=== PATIENT | female | born 1935 | race Caucasian/White ===

== ENCOUNTER 2017-01-06 17:37 | Inpatient (IN) ==
[2017-01-06 19:37] LABS: BASO% 0.1 % (0.0-0.8); HEMATOCRIT 39.4 % (37.0-47.0); HEMOGLOBIN 12.5 g/dL (12.0-16.0); IMM GRAN# 0.04 X1000 (0.0-0.04); IMM GRAN% 0.2 % (0.0-0.5); LYMPH# 0.41 X1000 (1.2-3.4); LYMPH% 2.2 % (20.5-51.1); MANUAL DIFF NEEDED? NO; MCH 29.1 PG (27-31); MCHC 31.7 g/dL (33-37); MCV 91.6 FL (81-99); MONO# 0.95 X1000 (0.11-0.59); MONO% 5.1 % (1.7-9.3); MPV 10.2 FL (7.4-10.4); NEUT% 92.4 % (42.2-75.2); PLT 231 X1000 (130-400)
[2017-01-06 20:02] LABS: AGAP 8; ALBUMIN 3.5 g/dL (3.5-5.0); ALKALINE PHOSPHATASE 41 U/L (32-104); BUN 18 mg/dL (8-22); CALCIUM 9.2 mg/dL (8.8-10.2); CHLORIDE 89 mmol/L (98-107); COSMO 283; GOT 21 U/L (10-30); GPT 20 U/L (10-36); POTASSIUM 3.8 mmol/L (3.5-5.1); SODIUM 140 mmol/L (136-145); TCO2 43 mmol/L (25-35); TOTAL BILIRUBIN 0.37 mg/dL (0.20-1.00); TOTAL PROTEIN 6.3 g/dL (6.3-8.3)
--- NOTE | 2017-01-06 20:43 | Diag Imaging Result Document ---
PROCEDURE NAME: CHEST-2 VIEWS - 01/06/2017 FRONTAL AND LATERAL CHEST, 2 VIEWS: FINDINGS: Sternal wires are present. The lungs are hyperexpanded. Heart is not enlarged. There are patchy areas of increased density in the mid lungs and right base. Likely scarring in the lower right lung. There is collapse of a lower thoracic vertebra and approximately 50% compression fracture to a mid thoracic vertebra. No effusions. IMPRESSION: Emphysema with bilateral infiltrates. Short-term followup recommended. If no change occurs following treatment then a CT is suggested.
[2017-01-06 20:49] LABS: ALLEN TEST YES; BE 24.4 mmoll (-3.0-3.0); BLOOD TYPE ARTERIAL; DRAW SITE R RADIAL; METHB 1.6 % (0.0-1.5); O2(CT) 15.1 mL/dL (15.0-23.0); PO2(98.6) 104 mmHg (60-100); SAMPLE BLOOD; SAO2 98.8 % (95.0-100.0); THB 11.1 g/dL (11.5-17.4); pH(98.6) 7.42 (7.35-7.45)
[2017-01-06 20:50] LABS: MODALITY CANNULA; PCO2(98.6) 82 mmHg (35-45)
--- NOTE | 2017-01-06 21:27 | PROVIDER DOCUMENTATION ---
This chart was entered by Tim Wolf Scribe, acting as scribe for Ronan Calle MD. HPI-Respiratory General - General Chief Complaint: Edema Stated Complaint: TROUBLE BREATHING, FEET SWELLING Time Seen by Provider: 01/06/17 18:58 Source: patient, family Allergies/Adverse Reactions: Patient Allergies Allergy/AdvReac Type Severity Reaction Status Date / Time No Known Allergies Allergy Verified 01/06/17 18:28 Home Medications: Home Medication List Medication Instructions Recorded Confirmed Last Taken Type Albuterol Sulfate 0.63 mg IH TID 01/06/17 01/06/17 01/06/17 History Albuterol Sulfate [Ventolin Hfa] 60 puff IH PRN PRN 01/06/17 01/06/17 01/06/17 History Arformoterol Neb [Brovana Neb] 15 microgm INH [id number] 01/06/17 01/06/17 01/06/17 History Budesonide 0.5 mg IH BID 01/06/17 01/06/17 01/06/17 History Guaifenesin [Mucinex] 600 mg PO BID 01/06/17 01/06/17 01/06/17 History Levofloxacin 500 mg PO DAILY 01/06/17 01/06/17 01/06/17 History Lorazepam 0.25 mg PO PRN PRN 01/06/17 01/06/17 Unknown History Multivitamin [Child Chew Vitamin] 1 each PO DAILY 01/06/17 01/06/17 01/06/17 History Prednisone 10 mg PO DAILY 01/06/17 01/06/17 01/06/17 History Campus Oil/[place]-3 Fatty Acids 1 each PO BID 01/06/17 01/06/17 01/06/17 History [Campus Oil 1,000 mg Softgel] Tiotropium [place] Inhaler 18 mcg IH DAILY 01/06/17 01/06/17 01/06/17 History [Spiriva] Verapamil HCl [Verapamil ER] 120 mg PO BID 01/06/17 01/06/17 01/06/17 History - History of Present Illness-Resp Nature of Presenting Problem: Pt is a 82 yof who presents to ER with CC of shortness of breath. Pt reports that she was recently discharged from a hospital in [place] and came to [place] for [place]. Pt reports that earlier today she started to become short of breath and anxious so she came to ER. Pt reports hx of lung disease and is on chronic O2 at home. On exam, pt is 100% on 2L O2. Pt also complains of mild bilateral lower extremity swelling and discoloration (more prominent on dorsal aspect of L pedis). Quality of Pain: reports: none Severity in ED: reports: mild Onset/Duration: reports: unsure, this evening Timing: reports: improving Modifying Factors: improves with: oxygen Associated Symptoms: reports: shortness of breath, short of breath. denies: chest pain/soreness, cough, dizziness, earache, facial pain, fever/chills, flu- like symptoms, headache, heart racing, hurts to breathe, hyperventilating, lightheadedness, muscle/bodyaches, nasal congestion, nasal drainage, sinus pain , sore throat, sweaty, wheezing Similar Symptoms Previously?: Yes Recently seen or treated by another doctor?: Yes Review of Systems - Adult - REVIEW OF SYSTEMS - ADULT Constitutional: denies: chills, fever, fatique, night sweats, weight gain, weight loss Eyes: reports: no symptoms reported Ears, Nose, Mouth & Throat: reports: no symptoms reported Cardiovascular: denies: chest pain, edema, heart murmur, irregular heart rate, orthopnea, palpitations, poor circulation, PND, syncope Respiratory: reports: shortness of breath. denies: chronic cough, cough, dyspnea on exertion, excessive sputum production, hemoptysis, pleurisy, wheezing Gastrointestinal: reports: no symptoms reported Genitourinary: reports: no symptoms reported Musculoskeletal: reports: no symptoms reported Integumentary: reports: rash, skin sores/ulcer. denies: hives, hair loss, itching, mole changes, nail changes, skin thickening Neurological: reports: no symptoms reported Psychiatric: reports: no symptoms reported Endocrine: reports: no symptoms reported Hematologic/Lymphatic: reports: no symptoms reported Allergic/Immunologic: reports: no symptoms reported All Other Systems: Reviewed and Negative Past History - Adult - PAST MEDICAL HISTORY-ADULT Review of Records: reports: Nursing Assessment Review, Medications Reviewed - IMMUNIZATION STATUS Childhood Immunizations: See Nurse Assessment Flu Vaccine: See Nurse Assessment Physical Exam-General - PHYSICAL EXAM-ADULT Initial Vital Signs Reviewed: Yes - CONSTITUTIONAL General Appearance: appears well, alert, no apparent distress, thin. negative: mild distress, moderate distress, severe distress, cachetic, obese, anxious, lethargic, slow to respond, obtunded, combative - NECK Neck: non-tender, full range of motion, supple, normal inspection. negative: limited range of motion, lymphadenopathy - RESPIRATORY Respiratory: chest non-tender, rales (velcro rales). negative: lungs clear, normal breath sounds, no pleuratic chest pain, no respiratory distress, no accessory muscle use, respiratory distress, rhonchi, stridor, wheezing - CARDIOVASCULAR Cardiovascular: normal peripheral pulses, tachycardia. negative: regular rate, rhythm, no murmur (murmur of aortic stenosis) - GASTROINTESTINAL (ABDOMEN) Abdominal Exam: normal bowel sounds, non tender, soft. negative: distended, guarding, rigid, rebound, tenderness - MUSCULOSKELETAL Back Exam: normal inspection, no CVA tenderness, no vertebral tenderness, kyphosis. negative: CVA tenderness, decreased range of motion, ecchymosis, muscle spasm, swelling, vertebral tenderness Extremity: normal range of motion, non-tender, normal gait, normal inspection, no calf tenderness, normal capillary refill, pedal edema, swelling. negative: no pedal edema, pelvis stable, abnormal NV exam, calf tenderness, deformity, erythema, inflammation, joint effusion, pulse deficit, slow capillary refill, tenderness - SKIN Integumentary: normal turgor, warm/dry, rash. 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, grossly normal, no motor/sensory deficits - PSYCHIATRIC Psych/Mental Status: normal mood/affect, normal thought content, normal thought process, oriented x 3 Progress - PLAN OF CARE/RESULTS Progress/Plan/Lab Results: Vital Signs - 8 hr 01/06/17 17:46 01/06/17 21:04 Temperature 98.2 F 98.4 F Pulse Rate 107 H 102 H Respiratory Rate 20 24 Blood Pressure 149/69 166/72 O2 Sat by Pulse Oximetry 100 100 Laboratory Results - last 24 hr 01/06/17 01/06/17 01/06/17 18:18 18:18 20:39 WBC 18.55 H RBC 4.30 Hgb 12.5 Hct 39.4 MCV 91.6 MCH 29.1 MCHC 31.7 L RDW Std Deviation 15.5 H Plt Count 231 MPV 10.2 Immature Gran % (Auto) 0.2 Neut % (Auto) 92.4 H Lymph % (Auto) 2.2 L [place] % (Auto) 5.1 Eos % (Auto) 0.0 Baso % (Auto) 0.1 Immature Gran # (Auto) 0.04 Neut # (Auto) 17.14 H Lymph # (Auto) 0.41 L [place] # (Auto) 0.95 H Eos # (Auto) 0.00 Baso # (Auto) 0.01 Specimen Type ARTERIAL Sample Site R RADIAL pH 7.42 pCO2 82 H* pO2 104 H HCO3 43.9 H Base Excess 24.4 H Oxyhemoglobin 95.6 ABG O2 Sat (Calculated) 15.1 ABG O2 Saturation 98.8 ABG Carboxyhemoglobin 1.60 ABG Methemoglobin 1.6 H Ron Test YES A-a O2 Difference -7.0 Total Hemoglobin 11.1 L Lactate 0.60 Liter Flow 2.0 Blood Gas Modality CAN[place]ULA FiO2 % 28.0 Sodium 140 Potassium 3.8 Chloride 89 L Carbon Dioxide 43 H Anion Gap 8 BUN 18 Creatinine 0.7 Estimated GFR/1.73 m2 > 60 BUN/Creatinine Ratio 26 Glucose 129 H Calculated Osmolality 283 Calcium 9.2 Total Bilirubin 0.37 AST 21 ALT 20 Alkaline Phosphatase 41 Total Protein 6.3 Albumin 3.5 Globulin 2.8 Albumin/Globulin Ratio 1.3 Orders Category Date Time Status CHEST-2 VIEWS [RAD] Stat Exams 01/06/17 19:21 Draft ABG [RESP] Routine Lab 01/06/17 20:39 Completed CBC WITH ELECTRONIC DIFF [HEME] Stat Lab 01/06/17 18:18 Completed COMPREHENSIVE METABOLIC PANEL [CHEM] Stat Lab 01/06/17 18:18 Completed Result Diagrams: 01/06/17 18:18 01/06/17 18:18 - XRAY 1 XRAY: Bilateral XRAY Study: Chest Impression: See EMR Report XRAY Interpretation: fibrotic lung disease; Status post sternotomy; infiltrates - CONSULTS/PCP/HOSPITALIST Notification #1 *Consult/PCP/Hospitalist*: Dr. Mary (Hospitalist) Time Discussed: 21:10 Consult Disposition: Admit Departure - Departure Time of Disposition Decision: 20:29 DIAGNOSIS: COPD exacerbation Disposition: ADMITTED INPATIENT 09 Certified Medical Emergency: Emergent Condition: Stable Referrals and Follow-Ups: None,PCP [Primary Care Provider] - This chart was documented by the indicated scribe, (Tim Wolf Scribe) and accurately reflects the services I performed and decisions made by me, Ronan Calle MD, as attested by the provider's signature.
[2017-01-06] MEDS ORDERED: LANOXIN IV ONE (22:00)
[2017-01-06] MEDS: XOPENEX NEB INH SCH (22:03)
[2017-01-06] MEDS: ATROVENT NEB INH SCH (22:04)
[2017-01-06 22:19] LABS: INR 0.9; PROTIME 9.4 Seconds (9.2-11.7)
[2017-01-06] MEDS ORDERED: ATIVAN PO PRN (23:59)
[2017-01-06] MEDS ORDERED: NS NEB INH SCH (23:59)
[2017-01-06] MEDS ORDERED: TYLENOL PO PRN (23:59)
[2017-01-06] MEDS ORDERED: ZOFRAN IV PRN (23:59)
[2017-01-07] MEDS: CULTURELLE PO SCH ×3 (00:55→20:33)
[2017-01-07] MEDS: LOVENOX SUBQ SCH ×2 (00:55→23:38)
[2017-01-07] MEDS: LOPRESSOR PO SCH ×2 (00:56→11:58)
[2017-01-07] MEDS: MERREM 1 GM in NS 50 ML IV SCH ×4 (01:06→23:39)
[2017-01-07] MEDS: ATROVENT NEB INH SCH ×5 (02:41→22:37)
[2017-01-07] MEDS: XOPENEX NEB INH SCH ×5 (02:41→22:37)
--- NOTE | 2017-01-07 04:58 | HISTORY AND PHYSICAL ---
PRIMARY CARE PHYSICIAN: No local primary care physician. REASON FOR ADMISSION: Bilateral leg swelling for 2 days and worsening shortness of breath for 3 days. HISTORY OF PRESENT ILLNESS: Ms. 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 She also has a history of COPD. She has been on home O2 since 1991 when she was diagnosed with bronchiolitis obliterans. She was recently discharged from a hospital in [place] for shortness of breath presumably secondary to pneumonia. They are residents in both [place] and [place]. On their way to [place] while driving, the patient noticed her legs were swollen and that the dorsum of her left foot was getting blue. She denies any pain in her legs per se. She called her home health agency in [place] and they told her to stop at the nearest hospital. Thus, this is how at the patient ended up in our facility. She reports that in addition to the leg swelling, she has been having some worsening shortness of breath for the last 2 days. She denies any fever or chills. She admits to having occasional cough which her says he witnessed with a tinge of yellow to it. No hemoptysis. No chest pain. No palpitations. The patient states that she was given some medications for her heart because it was in the 160s while in [place]. She denies any recent PND or orthopnea or abdominal swelling. She denies any GI or complaints. She denies any active weight loss, and appetite has not diminished. REVIEW OF SYSTEMS: Twelve system review is negative. Positive findings per HPI. ALLERGIES: No allergies. HOME MEDICATIONS: She is on albuterol MDI p.r.n., albuterol inhaler inhalation solution 3 times a day, Brovana b.i.d., budesonide b.i.d., Mucinex 600 b.i.d., Levaquin last tablet 500 mg daily which was given after her discharge. Oh by the way, the patient received IV antibiotics for 1 week while in-house. Lorazepam 0.25 mg p.r.n., multivitamin tablets once a day, prednisone 10 mg daily, fish oil 1 b.i.d., Spiriva 18 mcg daily, Rapamune 120 mg b.i.d. SURGICAL HISTORY: Cholecystectomy, hysterectomy and partial thymectomy. SOCIAL HISTORY: She does not smoke, drink, or use illicit drugs. She is . FAMILY HISTORY: Numerous family members with aneurysms, heart disease. No type 2 diabetes. Lung cancer in 1 of her family members. LABORATORY WORK/DIAGNOSTIC DATA: EKG not available for review. White count 18,000 hemoglobin 12 and hematocrit 39, platelets 231,000 with 92% neutrophils. Bicarb 43, anion gap 8 BUN 18, creatinine 0.7, glucose 129, albumin 3.5. PH 7.42, pCO2 82, PO2 104 with a bicarb of 44 and this is on 2 L which is her baseline. Chest film does show bibasilar infiltrates qualified as whether it was acute or chronic. No pulmonary vascular congestion. PHYSICAL EXAMINATION: VITAL SIGNS: A pleasant, frail, elderly woman, with blood pressure of 166/72, heart rate 102, temperature 98.4 degrees, respirations 24 on 2 L. GENERAL: She is alert and oriented to person, place, and time with very mild respiratory distress which is worse with minimal walking. HEENT: Head is normocephalic, atraumatic. Eyes, PARI, EOMI. She is anicteric and not pale. Oropharyngeal exam shows trace oral thrush. NECK: No JVD. No bruit or thyromegaly. Neck is supple. CHEST: Bibasilar coarse crepitations. No wheezes. Decreased entry in the bases. CARDIOVASCULAR: First and second heart sounds heard. No gallops. There is a 3/6 ejection systolic murmur loudest at the left sternal border. Rhythm is regular. ABDOMEN: Slightly protuberant, soft, nontender. No mass or organomegaly. Bowel sounds normal. No bruit heard. RECTAL: Exam is deferred. EXTREMITIES: Trace edema in lower extremities. She has bilateral bruising in the [place] area and some mild diffuse erythema which is chronic according to the patient, on her entire lower extremity. She was also has a blue dusky area on the dorsum of the left foot which is cold to touch. Both feet distally are cold and pulses bilaterally are the same but diminished. Decreased capillary refill on both feet and fingers. No clubbing or peripheral cyanosis. NEUROLOGICAL: No focal deficits. SKIN: Intact with no breakdown lesions or erythema. MUSCULOSKELETAL: Exam is grossly normal except for diffuse muscle atrophy. ASSESSMENT: 1. Jwiyr-wi-ywshbes respiratory failure. Etiology probably multifactorial. 2. Bilateral infiltrates with elevated white count. Could represent a nosocomial pneumonia or prior pneumonia. Or could be secondary to steroids and patient also having chronic interstitial scarring. 3. Lower extremity swelling could be secondary to cor pulmonale or could be secondary to the recent use of verapamil. 4. Chronic obstructive pulmonary disease. 5. Supraventricular tachycardia/sinus tachycardia probably secondary to decreased pulmonary reserve. 6. Interstitial lung disease from bronchiolitis obliterans. PLAN: At this time, since the patient has certain confounders, i.e., elevated white count which could be secondary to prednisone and lung changes, which could be from chronic interstitial lung disease, it is prudent to admit her and tease out what is acute from what is chronic. We will start patient empirically on Merrem since the patient has also been in the hospital for over a week and has been exposed to numerous antibiotics including Levaquin. This may be discontinued if CT scan findings show that this is chronic in nature. D-dimer has been ordered, but if the D- dimer is greater than 0.9, we will proceed to do a CT of the chest. My reason for doing this is because the patient has been doing a lot of long distance driving and this sets up for having a DVT. Clinically, I do not see any of this. However, I have also ordered a venous Doppler study. Also, we will discontinue inhaled steroids, as this has been shown to increase risk of recurrent pneumonias. Continue with long-acting bronchodilators, i.e., anticholinergics and beta-2 agonist. We will switch patient from verapamil to Cardizem, as this will cause less leg swelling and also add on a low-dose beta beryl and digoxin for synergistic effect. Again, echo to evaluate patient's cardiac status and rule out the possibility of pulmonary hypertension causing cor pulmonale or something alternative. Consult Cardiology and Pulmonology to see patient tomorrow. cc: Mary Kay Mary MD
[2017-01-07 05:04] LABS: ALLEN TEST YES; BE 22.2 mmoll (-3.0-3.0); BLOOD TYPE ARTERIAL; DRAW SITE R RADIAL; METHB 1.5 % (0.0-1.5); O2(CT) 16.5 mL/dL (15.0-23.0); PO2(98.6) 94 mmHg (60-100); SAMPLE BLOOD; SAO2 100.2 % (95.0-100.0); THB 12.1 g/dL (11.5-17.4); pH(98.6) 7.36 (7.35-7.45)
[2017-01-07 05:06] LABS: MODALITY CANNULA; PCO2(98.6) 93 mmHg (35-45)
[2017-01-07 05:30] LABS: EOS# 0.05 X1000 (0.0-0.7); EOS% 0.2 % (0.0-10.0); HEMATOCRIT 39.2 % (37.0-47.0); HEMOGLOBIN 12.3 g/dL (12.0-16.0); IMM GRAN# 0.06 X1000 (0.0-0.04); IMM GRAN% 0.3 % (0.0-0.5); LYMPH# 0.84 X1000 (1.2-3.4); LYMPH% 3.9 % (20.5-51.1); MANUAL DIFF NEEDED? YES; MCH 28.9 PG (27-31); MCHC 31.4 g/dL (33-37); MCV 92.2 FL (81-99); MONO# 1.66 X1000 (0.11-0.59); MONO% 7.7 % (1.7-9.3); MPV 9.7 FL (7.4-10.4); NEUT% 87.9 % (42.2-75.2); PLT 214 X1000 (130-400); RBC 4.25 XMIL (4.2-5.4)
[2017-01-07 05:47] LABS: BANDS 6 % (0-1); LYMPHS 4 % (21-51); MONO 8 % (1-9)
[2017-01-07 05:58] LABS: AGAP 8; ALBUMIN 3.1 g/dL (3.5-5.0); ALKALINE PHOSPHATASE 39 U/L (32-104); BUN 15 mg/dL (8-22); CHLORIDE 94 mmol/L (98-107); COSMO 286; GOT 18 U/L (10-30); GPT 18 U/L (10-36); POTASSIUM 3.5 mmol/L (3.5-5.1); SODIUM 144 mmol/L (136-145); TCO2 42 mmol/L (25-35); TOTAL BILIRUBIN 0.45 mg/dL (0.20-1.00); TOTAL PROTEIN 5.8 g/dL (6.3-8.3)
[2017-01-07] MEDS: BROVANA NEB INH SCH ×2 (09:12→22:23)
[2017-01-07] MEDS: FISH OIL CONCENTRATE PO SCH ×2 (09:49→20:33)
[2017-01-07] MEDS: MUCINEX PO SCH ×2 (09:49→20:31)
[2017-01-07] MEDS: THERA M PLUS PO SCH (09:51)
[2017-01-07] MEDS: MYCOSTATIN SUSP PO SCH ×3 (09:52→17:14)
--- NOTE | 2017-01-07 09:55 | Diag Imaging Result Document ---
PROCEDURE NAME: ANGIOGRAM/PULMONARY ARTERIES - 01/07/2017 CT CHEST WITH INTRAVENOUS CONTRAST: FINDINGS: There is normal opacification of the pulmonary arteries and their major branches. No pleural effusions. No cardiomegaly. No thoracic aortic aneurysm or dissection. Sternal wires are present. There are multifocal bilateral dense infiltrates. These are most pronounced in the lower right lung. Several of these have a nodular appearance although there is no distinct mass. No bronchiectasis. IMPRESSION: 1. No pulmonary emboli. 2. Nodular dense multifocal bilateral infiltrates. Follow up after treatment is recommended. A preliminary report was given at 4:12 a.m.
[2017-01-07] MEDS: CARDIZEM LA PO SCH (10:25)
--- NOTE | 2017-01-07 11:50 | PROGRESS NOTE ---
DATE: 01/07/2017 SUBJECTIVE: The patient notes she is feeling a little bit better. Notes that her swelling in her feet is improved. Denies any current chest pains or palpitations. Denies any real shortness of breath. PHYSICAL EXAMINATION: Vital signs reviewed. Temperature 98 degrees, pulse 96, respiratory 20, BP 153/75, saturation 98% on 2 L. General: The patient is awake, alert. She is currently in no real respiratory distress. She is pleasant to talk with. Speech is regular. Memory is intact. HEENT: Normocephalic, atraumatic. PARI. Neck supple. CV: Regular rate. Chest: Decreased breath sounds but equal bilaterally. No apparent wheezing. No crackles. Abdomen soft. Extremities: Moves all extremities. Neurologic: No focal changes. Skin: Warm and dry. No rashes. LABORATORY DATA: Labs reviewed. CTA demonstrates no pulmonary embolus. She has a nodular-dense bilateral infiltrate. ASSESSMENT: 1. Rfgit-ah-nulhgqf respiratory failure. 2. Chronic hypoxic respiratory failure. The patient is on oxygen at home. 3. Bilateral pulmonary infiltrates. The patient actually was just recently in the hospital apparently in [place] for pneumonia and was traveling home. Uncertain if this CT demonstrates a new lesion or if this is chronic and healing. 4. Lower extremity edema. Appears improved. 5. Elevated D-dimer. CTA is negative. Ultrasound of he bilateral lower extremities is currently pending. 6. 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 PLAN: We will continue on Merrem. We will check ultrasound of lower extremities. Further orders as needed. cc: George Sotelo MD
[2017-01-07] MEDS: LEVAQUIN PO SCH (11:59)
[2017-01-07] MEDS: SPIRIVA INH SCH (12:04)
--- NOTE | 2017-01-07 14:10 | CONSULTATION ---
DATE OF CONSULTATION: 01/07/2017 CONSULTATION: Pulmonary/critical care. CONSULTING PHYSICIAN: Mary Kay Mary MD Thank you very much for asking me to see this very unfortunate 82-year-old female. DIAGNOSES: 1. 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 2. Home oxygen dependency. 3. Remote history of cigarette smoking. 4. Protein calorie malnutrition. 5. Hypertension. 6. Right upper lobe and right middle lobe infiltrate consistent with bronchiectasis and pneumonia. RECOMMENDATIONS: I agree with the broad-spectrum antibiotics. Give her bronchodilators as well as supplemental oxygen and inhaled beta agonists and will follow closely along with you. HISTORY: This very unfortunate 82-year-old lady who has a history of home oxygen dependency. Bronchiolitis obliterans and bronchiectasis. She apparently was residing the winter in [place]. She normally lives in [place], [place]. While traveling back to [place] she developed the onset of some wheezing, cough, congestion and respiratory distress. Presented to our facilities for admission. I am consulted to assist in her care. REVIEW OF SYSTEMS: Except for the features mentioned above, are positive for some weakness, weight loss and some anorexia. No ENT symptoms of odynophagia, dysphagia, epistaxis or painful swallowing. No eye symptoms of blindness, blurring or diplopia. No other cardiac or pulmonary symptoms other than mentioned. No nausea, vomiting, constipation, diarrhea. No hematuria, polyuria, nocturia, dysuria, no joint or muscle pain stiffness or swelling. No skin rashes, itching, bruises. No seizures, loss of consciousness or paralysis. Except for the features mentioned above all other symptoms on the review of systems are negative. MEDICATIONS: She lists her home medications as albuterol nebulized or metered dose inhaler 3 times a day, Brovana twice a day. Mucinex 600 mg b.i.d. and she was on Levaquin 500 mg after discharge from the hospital in [place] before she started home. She also has a list of lorazepam 0.25 mg p.r.n. as well as multivitamins once a day. Prednisone 10 mg a day. Fish oil 1 g b.i.d., Spiriva 1 puff a day and Rapamune 120 mg b.i.d. FAMILY HISTORY: Noncontributory to the above. SOCIAL HISTORY: She lives at home with her . . A elem of [place], [place]. PHYSICAL EXAMINATION: Vital Signs: Shows a blood pressure of 153/75, pulse 96, respirations 20, temperature 98.4 degrees. HEENT: Reveals no thyromegaly or adenopathy. Pupils are equal and reactive. Extraocular muscles are intact. Neck: Supple. No bruits. No thyromegaly. No JVD. Chest: Reveals bilateral equal breath sounds with rhonchi and crackles throughout. There is some prolongation of the expiratory phase and some forced expiratory wheezes. Cardiac: Reveals a regular rhythm without an appreciable murmur. Abdomen: Soft, nontender, mildly scaphoid. Nondistended. Distended. Extremities: Reveal muscle atrophy. No edema. Neurologically: She is awake but very easily confused, however. DIAGNOSTIC STUDIES: The chest CT shows an infiltrate in the right upper lobe as well as the right lower lobe with some bronchiectatic changes bilaterally, [place]. [place] [id number] with a hemoglobin of 12.3, hematocrit 39.2, platelets at 213,000. Sodium is 144, potassium 3.5, chloride 95, CO2 42, BUN 15, creatinine 0.6, glucose 73. ABG shows a 7.36 pH with a 93 CO2 and 94, O2.
[2017-01-07] MEDS: ISOPTIN SR PO SCH ×2 (14:36→20:33)
[2017-01-07] MEDS: SOLU-MEDROL IV SCH ×2 (14:36→20:30)
--- NOTE | 2017-01-07 14:53 | CONSULTATION ---
DATE OF CONSULTATION: 01/07/2017 REASON FOR CONSULTATION: Patient admitted with COPD, pneumonia. Cardiology was consulted for PACs. She had a history of arrhythmias 3-4 years back. HISTORY OF PRESENT ILLNESS: 82-year-old lady with past medical history of interstitial lung disease, bronchiolitis obliterans, COPD. She was recently discharged from a hospital in [place] with shortness of breath. They are residents in both [place] and [place]. On the way to [place] patient noticed increasing pedal edema and shortness of breath. She came to the emergency room, was admitted. Her telemetry reveals normal sinus rhythm. PACs were noted. From a cardiac standpoint she denies chest pain suggestive of angina. She has shortness of breath for the last 2 days, denies any fevers or chills. There is cough with mucoid to mucopurulent expectoration though no hemoptysis. There is no dizziness or syncope. PAST MEDICAL HISTORY: 1. History of murmur. 2. History of in the past. 3. COPD. 4. Interstitial lung disease. 5. Bronchiolitis obliterans. 6. Cholecystectomy. 7. Hysterectomy. 8. Partial thymectomy. SOCIAL HISTORY: She does not smoke. Does not drink. There is no illicit drug abuse. FAMILY HISTORY: With heart disease. MEDICATIONS: Include 1. Lorazepam 0.5 mg. 2. Guaifenesin 600 mg p.o. b.i.d. 3. Nebulizers. 4. Brovana. 5. Budesonide. 6. Levofloxacin 500 mg p.o. daily. 7. Prednisone 10. 8. Verapamil 120 p.o. b.i.d. 9. Her current medications also include addition of metoprolol and methylprednisone. PHYSICAL EXAMINATION: Vital Signs: Blood pressure was 140/63. Cardiovascular System: Normal jugular venous pressure. First and second heart sounds were heard. There is no S3 gallop. There was ejection systolic murmur. Respiratory System: Scattered wheeze. Abdomen: Soft, nontender. There was no guarding or rigidity. Bowel sounds were heard. Central nervous system: Alert, was moving all 4 extremities. Extremities: Examination of extremities revealed trace pedal edema. Neuro: Detailed central nervous system examination not performed. LABORATORY EXAMINATION: Revealed pH 7.36, PCO2 93, PO2 94, base excess 42. Sodium 144, potassium 3.5, BUN 15, creatinine 0.7. TSH 0.56. Pulmonary arteriogram was done which revealed no pulmonary emboli, nodular dense multifocal bilateral infiltrates. ASSESSMENT AND PLAN: Ms Laxmi Patterson is 82-year-old lady with history of a murmur and arrhythmias in the past diagnosed 3-4 years ago, has been on calcium channel blockers. From a cardiac standpoint she has occasional palpitations. Her telemetry reveals PACs. RECOMMENDATIONS: 1. Will get an echocardiogram to assess cardiac and valvular function. 2. I will avoid beta-blockers given her severe COPD and pneumonia. Continue with her calcium channel beryl. She has been on verapamil. 3. She has no chest pain. 4. Her main admission diagnosis has been pneumonia with severe COPD and bronchiolitis obliterans has been noted in the past. She has elevated PCO2 and is on nebulizers as well. Pulmonology is following her. Thank you for the consult. Will follow hospital course. cc: Kei Morrissey MD
--- NOTE | 2017-01-07 15:27 | ECHO REPORT ---
ORDER DATE: 01/07/2017 ECHOCARDIOGRAPHIC MEASUREMENTS: 1. Interventricular septum 0.9. Left ventricular posterior wall 0.9. Diastolic diameter 3.9. Left atrium 3.0, aorta 2.6. 2. Aortic valve leaflets are trileaflet, sclerosed, opening normally. 3. Pulmonic valve was normal. There is trace pulmonary regurgitation. Mitral valve was normal. Mitral annular calcification was noted. Tricuspid valve was normal. Normal left ventricular cavity size. Estimated ejection fraction of 60-65%. 4. Doppler studies revealed mild mitral regurgitation. 5. Mild tricuspid regurgitation. Peak velocity across the tricuspid valve was less than 2 m/sec. 6. Peak velocity across the aortic valve was 2.2 m/sec. There is no aortic stenosis. There is aortic sclerosis. There is no aortic regurgitation. 7. There is no pericardial effusion or obvious intracardiac mass or thrombus seen. cc: MD Mary Kay Kaufman MD
[2017-01-07] MEDS ORDERED: ATIVAN PO PRN (16:20)
[2017-01-07] MEDS: PULMICORT INH SCH (22:37)
[2017-01-08] MEDS: XOPENEX NEB INH SCH ×3 (03:13→16:19)
[2017-01-08] MEDS: ATROVENT NEB INH SCH ×3 (03:14→16:18)
[2017-01-08] MEDS: SOLU-MEDROL IV SCH (03:31)
[2017-01-08] MEDS: MERREM 1 GM in NS 50 ML IV SCH ×2 (08:59→16:29)
[2017-01-08] MEDS: SPIRIVA INH SCH (09:06)
[2017-01-08] MEDS: PULMICORT INH SCH (09:07)
[2017-01-08] MEDS: BROVANA NEB INH SCH (09:08)
[2017-01-08] MEDS: ISOPTIN SR PO SCH ×2 (10:29→20:15)
[2017-01-08] MEDS: FISH OIL CONCENTRATE PO SCH ×2 (10:31→20:15)
[2017-01-08] MEDS: THERA M PLUS PO SCH (10:31)
[2017-01-08] MEDS: MUCINEX PO SCH ×2 (10:31→20:15)
[2017-01-08] MEDS: CULTURELLE PO SCH ×2 (10:31→20:15)
[2017-01-08] MEDS: LEVAQUIN PO SCH (10:31)
[2017-01-08] MEDS: PREDNISONE PO SCH (10:32)
[2017-01-08] MEDS: MYCOSTATIN SUSP PO SCH ×3 (10:32→16:32)
[2017-01-08] MEDS: CARDIZEM LA PO SCH (10:32)
--- NOTE | 2017-01-08 14:20 | PROGRESS NOTE ---
DATE: 01/08/2017 SUBJECTIVE: The patient notes that she is feeling better but interestingly she has to ask her if she is feeling better. She has not been out of bed. Denies any chest pain, palpitations. PHYSICAL: Vital signs: Temperature 97, pulse 67, respiratory 16, BP 153/51, saturations 100% on 2 L. General: Patient is awake, alert, elderly female who appears her stated age. She is in no current respiratory distress. She is lying in bed watching television. HEENT: Normocephalic, atraumatic. Neck: Supple. CV: Regular rate. Chest: Relatively clear. Decreased wheezing from yesterday's exam. No crackles or rhonchi. Poor air movement but equal bilaterally. Abdomen: Soft. Extremities: Moves all extremities. Neurologic: No changes. DIAGNOSTIC DATA: WBC is 21. PCO2 of 93, carboxyhemoglobin 2.6, albumin 3.1. ASSESSMENT: 1. Acute hypercapnic respiratory failure. 2. Bilateral infiltrates. 3. Leukocytosis. 4. Chronic obstructive pulmonary disease. 5. 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 6. Supraventricular tachycardia stable. 7. Elevated D-dimer. Pulmonary arteriogram did not demonstrate any deep vein thrombosis. It did show multifocal bilateral infiltrates however. Her ultrasound although I do not have a dictated report has been reported to me as negative bilateral ultrasound of lower extremities. PLAN: Will continue patient on current antibiotics. Continue breathing treatments, oxygen. Appreciate pulmonology input. Hopefully can move to a regular floor later this afternoon. cc: George Sotelo MD
[2017-01-08] MEDS: LOVENOX SUBQ SCH (22:28)
[2017-01-09] MEDS: LOVENOX SUBQ SCH (01:12)
[2017-01-09] MEDS: MERREM 1 GM in NS 50 ML IV SCH ×3 (01:39→16:49)
[2017-01-09 04:29] LABS: ALLEN TEST YES; BE 18.7 mmoll (-3.0-3.0); BLOOD TYPE ARTERIAL; DRAW SITE R RADIAL; METHB 1.6 % (0.0-1.5); O2(CT) 17.9 mL/dL (15.0-23.0); PO2(98.6) 109 mmHg (60-100); SAMPLE BLOOD; SAO2 99.3 % (95.0-100.0); THB 13.2 g/dL (11.5-17.4)
[2017-01-09 04:31] LABS: MODALITY CANNULA; PCO2(98.6) 77 mmHg (35-45)
[2017-01-09] MEDS: BROVANA NEB INH SCH ×2 (04:38→22:10)
[2017-01-09] MEDS: PULMICORT INH SCH ×3 (04:41→21:00)
[2017-01-09] MEDS: ATROVENT NEB INH SCH ×5 (04:42→21:00)
[2017-01-09] MEDS: XOPENEX NEB INH SCH ×5 (04:42→21:00)
--- NOTE | 2017-01-09 05:59 | EKG Report ---
Test Performed on : 01/08/2017 1:04:37 PM Test Reason : Palpitations Blood Pressure : / mmHG Vent. Rate : 080 BPM Atrial Rate : 080 BPM P-R Int : 158 ms QRS Dur : 080 ms QT Int : 342 ms P-R-T Axes : 075 079 060 degrees QTc Int : 394 ms Normal sinus rhythm. Possible Left atrial enlargement Borderline ECG No previous ECGs available Confirmed by Ravinder RAIN, Harris Porter ([id number]) on 01/09/2017 9:00:14 AM
--- NOTE | 2017-01-09 06:21 | Diag Imaging Result Document ---
PROCEDURE NAME: CHEST-1 VIEW - 01/09/2017 CHEST SINGLE VIEW: COMPARISON: Compared to 01/06/2017. FINDINGS: The lungs are well expanded. Sternal wires are present. The heart is not enlarged. There are multifocal areas of increased density most pronounced in the right mid and lower lung. No pleural effusions identified. There are several old right rib fractures. No pneumothoraces. IMPRESSION: Stable chest.
[2017-01-09 06:41] LABS: EOS# 0.05 X1000 (0.0-0.7); EOS% 0.2 % (0.0-10.0); HEMATOCRIT 38.6 % (37.0-47.0); HEMOGLOBIN 12.3 g/dL (12.0-16.0); IMM GRAN# 0.06 X1000 (0.0-0.04); IMM GRAN% 0.3 % (0.0-0.5); LYMPH# 1.12 X1000 (1.2-3.4); LYMPH% 5.2 % (20.5-51.1); MANUAL DIFF NEEDED? YES; MCH 29.2 PG (27-31); MCHC 31.9 g/dL (33-37); MCV 91.7 FL (81-99); MONO# 1.47 X1000 (0.11-0.59); MONO% 6.8 % (1.7-9.3); MPV 9.9 FL (7.4-10.4); NEUT% 87.5 % (42.2-75.2); PLT 247 X1000 (130-400); RBC 4.21 XMIL (4.2-5.4)
[2017-01-09 06:44] LABS: AGAP 8; BUN 12 mg/dL (8-22); CALCIUM 9.4 mg/dL (8.8-10.2); CHLORIDE 97 mmol/L (98-107); COSMO 286; POTASSIUM 4.6 mmol/L (3.5-5.1); SODIUM 144 mmol/L (136-145); TCO2 39 mmol/L (25-35)
[2017-01-09 07:01] LABS: LYMPHS 10 % (21-51); MONO 8 % (1-9)
[2017-01-09 07:02] LABS: HYPOCHROM 1+
[2017-01-09] MEDS: PREDNISONE PO SCH (08:32)
[2017-01-09] MEDS: CARDIZEM LA PO SCH (08:32)
[2017-01-09] MEDS: MUCINEX PO SCH ×2 (08:32→23:40)
[2017-01-09] MEDS: CULTURELLE PO SCH ×2 (08:32→23:39)
[2017-01-09] MEDS: FISH OIL CONCENTRATE PO SCH ×2 (08:32→23:40)
[2017-01-09] MEDS: THERA M PLUS PO SCH (08:32)
[2017-01-09] MEDS: ISOPTIN SR PO SCH (08:32)
[2017-01-09] MEDS: LEVAQUIN PO SCH (08:33)
[2017-01-09] MEDS: MYCOSTATIN SUSP PO SCH ×3 (08:33→16:50)
--- NOTE | 2017-01-09 17:37 | PROGRESS NOTE ---
DATE: 01/09/2017 SUBJECTIVE: The patient's breathing has overall improved. OBJECTIVE: Vital Signs: Blood pressure 135/56, heart rate 74, respiratory rate 18, temperature 98 degrees, 100% on 2 L. Cardiovascular: Regular rate and rhythm. Pulmonary: Bilateral breath sounds. Clear to auscultation. Gastrointestinal: Soft, nontender, nondistended. Bowel sounds are positive. LABORATORY DATA: White count was up to 21,000. Hemoglobin and hematocrit 12 and 38. Platelets of 247,000. Blood gas pH 7.4, pCO2 77, PaO2 109. Basic metabolic was negative BUN and creatinine were unremarkable. PROBLEM LIST: 1. Chronic obstructive pulmonary disease exacerbation. We will continue to follow very closely. She is really just on a little bit oral steroids, only 10 daily. We will continue to follow. 2. Multifocal infiltrates. She is on Merrem for pneumonia control and Levaquin. White count is still fairly elevated. I think I am going to switch the Levaquin back to p.o. 3. Coronary artery disease. We will continue to monitor very closely. DISPOSITION: She is traveling through this area. We will need to optimize her before she can go back home to [place], which will be a fairly long trip in the car on the way back. cc: Javi Gatica MD
[2017-01-10] MEDS: LOVENOX SUBQ SCH (00:48)
[2017-01-10] MEDS: MERREM 1 GM in NS 50 ML IV SCH ×3 (00:48→16:35)
[2017-01-10] MEDS: ATROVENT NEB INH SCH ×4 (04:11→21:15)
[2017-01-10] MEDS: XOPENEX NEB INH SCH ×4 (04:15→21:15)
[2017-01-10 06:39] LABS: MANUAL DIFF NEEDED? NO
[2017-01-10 06:45] LABS: BASO% 0.1 % (0.0-0.8); EOS# 0.42 X1000 (0.0-0.7); EOS% 3.6 % (0.0-10.0); HEMATOCRIT 34.1 % (37.0-47.0); HEMOGLOBIN 10.6 g/dL (12.0-16.0); IMM GRAN# 0.04 X1000 (0.0-0.04); IMM GRAN% 0.3 % (0.0-0.5); LYMPH# 1.36 X1000 (1.2-3.4); LYMPH% 11.8 % (20.5-51.1); MCH 28.5 PG (27-31); MCHC 31.1 g/dL (33-37); MCV 91.7 FL (81-99); MONO# 1.37 X1000 (0.11-0.59); MONO% 11.9 % (1.7-9.3); MPV 9.6 FL (7.4-10.4); NEUT% 72.3 % (42.2-75.2); PLT 221 X1000 (130-400); RBC 3.72 XMIL (4.2-5.4)
[2017-01-10 06:58] LABS: AGAP 6; BUN 11 mg/dL (8-22); CALCIUM 8.5 mg/dL (8.8-10.2); CHLORIDE 99 mmol/L (98-107); COSMO 282; POTASSIUM 4.3 mmol/L (3.5-5.1); SODIUM 142 mmol/L (136-145); TCO2 37 mmol/L (25-35)
[2017-01-10] MEDS: PREDNISONE PO SCH (08:39)
[2017-01-10] MEDS: CULTURELLE PO SCH ×2 (08:40→21:14)
[2017-01-10] MEDS: CARDIZEM LA PO SCH (08:40)
[2017-01-10] MEDS: THERA M PLUS PO SCH (08:40)
[2017-01-10] MEDS: MUCINEX PO SCH ×2 (08:40→21:14)
[2017-01-10] MEDS: FISH OIL CONCENTRATE PO SCH ×2 (08:40→21:14)
[2017-01-10] MEDS: LEVAQUIN 500 MG/D5W 500 MG/100 ML IVPB IV SCH (08:41)
[2017-01-10 09:20] LABS: ALLEN TEST YES; BLOOD TYPE ARTERIAL; DRAW SITE R RADIAL; METHB 1.5 % (0.0-1.5); O2(CT) 14.9 mL/dL (15.0-23.0); PO2(98.6) 162 mmHg (60-100); SAMPLE BLOOD; SAO2 98.7 % (95.0-100.0); THB 10.8 g/dL (11.5-17.4); pH(98.6) 7.34 (7.35-7.45)
[2017-01-10 09:22] LABS: MODALITY CANNULA; PCO2(98.6) 77 mmHg (35-45)
[2017-01-10] MEDS: PULMICORT INH SCH ×2 (10:08→21:15)
[2017-01-10] MEDS: SPIRIVA INH SCH ×2 (10:10)
[2017-01-10] MEDS: MYCOSTATIN SUSP PO SCH ×3 (13:26→17:46)
[2017-01-10] MEDS ORDERED: LACTULOSE PO ONE (15:09)
[2017-01-10] MEDS ORDERED: MIRALAX PO ONE (15:10)
[2017-01-10] MEDS ORDERED: MIRALAX PO SCH (15:15)
[2017-01-10] MEDS: BROVANA NEB INH SCH (21:15)
[2017-01-11] MEDS ORDERED: SOLU-MEDROL IV ONE (00:49)
[2017-01-11] MEDS ORDERED: BENADRYL IV ONE (00:49)
[2017-01-11] MEDS: MERREM 1 GM in NS 50 ML IV SCH ×3 (01:10→16:24)
[2017-01-11] MEDS: LOVENOX SUBQ SCH (01:10)
[2017-01-11] MEDS: ATROVENT NEB INH SCH ×4 (03:06→19:27)
[2017-01-11] MEDS: XOPENEX NEB INH SCH ×4 (03:07→19:26)
--- NOTE | 2017-01-11 07:00 | PROGRESS NOTE ---
DATE: 01/11/2017 SUBJECTIVE: The patient has no focal complaints. Her breathing is comfortable. OBJECTIVE: Vital signs: Blood pressure 156/61, heart rate 58, respiratory rate 16, temperature 97.6, 94% on 2 L. cardiovascular: Regular rate and rhythm. Pulmonary: Bilateral breath sounds, clear to auscultation. GI: Soft, nontender, nondistended. Bowel sounds are positive. LABORATORY DATA: White count 11.5, hemoglobin and hematocrit 10 and 34, platelets of 221,000. Chemistries look good. PROBLEM LIST: 1. COPD exacerbation, appears to be stable. Continue treatments. Wean steroids as tolerated. Continue breathing treatments. Antibiotics and follow. Disposition: Clinically, I think she is much improved. I think she could probably go home in the next 24 hours, pending pulmonary consultation. 2. Elevated D-dimer with possible resolved acute hypercapnic respiratory . DISPOSITION: Again, try to stabilize her so she can go on her 8 hour car trip back to [place]. cc: Javi Gatica MD
[2017-01-11 08:08] LABS: AGAP 7; BUN 9 mg/dL (8-22); CALCIUM 8.8 mg/dL (8.8-10.2); CHLORIDE 99 mmol/L (98-107); COSMO 286; POTASSIUM 4.2 mmol/L (3.5-5.1); SODIUM 143 mmol/L (136-145); TCO2 37 mmol/L (25-35)
[2017-01-11 08:54] LABS: ALLEN TEST YES; BLOOD TYPE ARTERIAL; DRAW SITE R RADIAL; METHB 1.5 % (0.0-1.5); O2(CT) 18.3 mL/dL (15.0-23.0); PO2(98.6) 91 mmHg (60-100); SAMPLE BLOOD; SAO2 98.5 % (95.0-100.0); THB 13.6 g/dL (11.5-17.4)
[2017-01-11 08:58] LABS: HEMATOCRIT 37.3 % (37.0-47.0); HEMOGLOBIN 11.6 g/dL (12.0-16.0); MCH 28.9 PG (27-31); MCHC 31.1 g/dL (33-37); RBC 4.01 XMIL (4.2-5.4)
[2017-01-11 09:12] LABS: MODALITY CANNULA; PCO2(98.6) 66 mmHg (35-45)
[2017-01-11] MEDS: THERA M PLUS PO SCH (09:22)
[2017-01-11] MEDS: FISH OIL CONCENTRATE PO SCH (09:22)
[2017-01-11] MEDS: MUCINEX PO SCH (09:22)
[2017-01-11] MEDS: CARDIZEM LA PO SCH (09:22)
[2017-01-11] MEDS: PREDNISONE PO SCH (09:22)
[2017-01-11] MEDS: CULTURELLE PO SCH (09:23)
[2017-01-11] MEDS: LEVAQUIN 500 MG/D5W 500 MG/100 ML IVPB IV SCH (09:54)
[2017-01-11] MEDS ORDERED: BROVANA NEB ONE (10:17)
[2017-01-11] MEDS: MYCOSTATIN SUSP PO SCH ×3 (10:35→18:22)
[2017-01-11] MEDS: PULMICORT INH SCH ×2 (11:13→19:26)
[2017-01-11] MEDS: BROVANA NEB INH SCH ×2 (11:16→19:26)
[2017-01-11] MEDS: SPIRIVA INH SCH (11:17)
--- NOTE | 2017-01-11 11:23 | Extremity Venous Study ---
PROCEDURE NAME: Venous U/S Bilateral Legs - 01/06/2017 STUDY: Bilateral lower extremity venous duplex, and color flow imaging study using the [employer] Vivid E9 ultrasound System with 9 L-D transducer. REFERRING PHYSICIAN: Mary Kay Mary MD. AGE/SEX: An 82-year-old, female. SHANKER OUT: Jose G. INDICATIONS: 1. Swelling of the limb (ICD-10 M79.89). 2. The patient reports that her left foot is swollen and blue. FINDINGS: Right common femoral vein and its branches, deep and superficial femoral veins were satisfactorily imaged. They had flow through them and were compressible. Right popliteal vein and deep veins below the right knee were all compressible and had flow through them. Superficial veins of the right lower extremity were compressible throughout their length. The left common femoral vein and its branches, deep and superficial femoral veins were also satisfactorily imaged. They had flow through them and were compressible. Left popliteal vein and deep veins below the left knee were all compressible and had flow through them. Superficial veins of the left lower extremity were compressible throughout their length. INTERPRETATION: No evidence of acute deep or superficial venous thrombosis of the bilateral lower extremities. cc: MD Mary Kay Sheffield MD
[2017-01-11] MEDS ORDERED: HYDROXYZINE LIQUID PO PRN (16:12)
--- NOTE | 2017-01-11 17:06 | PROGRESS NOTE ---
DATE: 01/11/2017 SUBJECTIVE: The patient is feeling a little better today. She still has a feeling like she has something that she can cough up but could not get it up. Shortness of breath has significantly improved. OBJECTIVE: Vital signs: Blood pressure 159/59, pulse of 95, respirations 20, temperature 97.8 degrees, sat 100%. General appearance: Thin white female in mild distress. HEENT: Anicteric sclerae. Clear conjunctivae. Neck: Supple. No JVD. No bruit. Cardiovascular: S1, S2. Normal rate and rhythm. No murmur, rubs, or gallops. Pulmonary: Faint and fine crackles bilaterally. GI: Soft, nontender, nondistended. Normoactive bowel sounds. Musculoskeletal: No clubbing, cyanosis, or edema. Her CO2 today is 66 on the ABG. White count 10.12, hemoglobin 11.6, hematocrit of 37.3, platelets of 233,000. Chemistry: Sodium 143, potassium 4.2, chloride 99, bicarb 37. BUN 9. Creatinine 0.5. Glucose 136. Her echocardiogram this admission shows an EF of 60-65%. ASSESSMENT AND PLAN: This is an 82-year-old, white female admitted to the hospital for acute respiratory failure. 1. Acute respiratory failure. This is acute on chronic secondary to hypercapnia. She is feeling much better. Continue to wean her steroid and will continue breathing treatment. Pulmonology is following. The patient is on Xopenex, Levaquin as well as meropenem. No culture was done. She is on prednisone 10 mg p.o. daily. I will go ahead and stop her meropenem since we do not have any clear source of infection at this point. Keep her on Levaquin for now. I would check her ABG again tomorrow. If her ABG continues to improve the patient can possibly go home tomorrow. 2. Pulmonary fibrosis. She has a history of bronchiolitis obliterans diagnosed by [facility]. Has been on oxygen at home. 3. SVT. Stable. No recurrence. Cardiology will consult. Echo was done. We will continue diltiazem for now. 4. Code Status. The patient is a full code. 5. Deep vein thrombosis prophylaxis. The patient is on Lovenox.
[2017-01-12] MEDS: XOPENEX NEB INH SCH ×3 (03:15→15:36)
[2017-01-12] MEDS: ATROVENT NEB INH SCH ×3 (03:15→15:36)
[2017-01-12] MEDS: FISH OIL CONCENTRATE PO SCH ×2 (03:47→09:58)
[2017-01-12] MEDS: CULTURELLE PO SCH ×2 (03:47→09:58)
[2017-01-12] MEDS: MUCINEX PO SCH ×2 (03:47→09:58)
[2017-01-12] MEDS: LOVENOX SUBQ SCH (04:03)
[2017-01-12 04:32] LABS: ALLEN TEST YES; BE 16.8 mmoll (-3.0-3.0); BLOOD TYPE ARTERIAL; DRAW SITE R RADIAL; METHB 1.4 % (0.0-1.5); O2(CT) 14.3 mL/dL (15.0-23.0); PO2(98.6) 126 mmHg (60-100); SAMPLE BLOOD; SAO2 99.6 % (95.0-100.0); THB 10.3 g/dL (11.5-17.4); pH(98.6) 7.43 (7.35-7.45)
[2017-01-12 04:33] LABS: MODALITY CANNULA
[2017-01-12 04:37] LABS: PCO2(98.6) 66 mmHg (35-45)
[2017-01-12 07:58] VITALS: BP 164/62
--- NOTE | 2017-01-12 09:03 | Diag Imaging Result Document ---
PROCEDURE NAME: CHEST-1 VIEW - 01/12/2017 PORTABLE CHEST: Compared with 01/09/2017. FINDINGS: Heart size is normal. There are sternal wires from previous surgery again seen. There has been interval decrease in ill-defined infiltrates. There is mild residual infiltrate, primarily at the right lower lung. There is no pleural effusion or pneumothorax identified. IMPRESSION: Interval decrease in ill-defined infiltrates.
[2017-01-12] MEDS: SPIRIVA INH SCH (09:30)
[2017-01-12] MEDS: PULMICORT INH SCH (09:30)
[2017-01-12] MEDS: BROVANA NEB INH SCH (09:31)
[2017-01-12] MEDS: CARDIZEM LA PO SCH (09:58)
[2017-01-12] MEDS: PREDNISONE PO SCH (09:58)
[2017-01-12] MEDS: MYCOSTATIN SUSP PO SCH (09:58)
[2017-01-12] MEDS: THERA M PLUS PO SCH (09:58)
[2017-01-12] MEDS: LEVAQUIN 500 MG/D5W 500 MG/100 ML IVPB IV SCH (09:58)
--- NOTE | 2017-01-13 12:37 | DISCHARGE SUMMARY ---
ADMISSION DATE: 01/06/2017 DISCHARGE DATE: 01/12/2017 CONSULTATIONS: 1. Jeb Silva MD with Pulmonology. 2. Kei Morrissey MD with Cardiology. PERTINENT PROCEDURES: 1. Venous extremity Dopplers showed no evidence of acute deep or superficial venous thrombosis of the bilateral lower extremities. 2. Pulmonary arteriogram showed no pulmonary emboli. Nodular dense multifocal bilateral infiltrates. 3. Echocardiogram showed an EF of 60% to 65%. DISCHARGE DIAGNOSES: 1. Acute respiratory failure, [id number] secondary to hypercapnia. Followed by Pulmonology. Patient is stable. 2. Pulmonary fibrosis. On home O2. Stable. 3. Supraventricular tachycardia. Stable. No recurrence. 4. Chronic obstructive pulmonary disease exacerbation. Stable. 5. Multifocal infiltrates. Patient was on meropenem for pneumonia control and Levaquin. Going home on p.o. antibiotics. Stable. 6. Coronary artery disease. Stable. HOSPITAL COURSE: Ms. Patterson is an 82-year-old female with a past medical history of interstitial lung disease secondary to bronchiolitis obliterans, COPD on home O2 since 1991 when she was diagnosed, recently discharged from the hospital in [place] with shortness of breath presumably secondary to pneumonia. There are residents in both [place] and [place]. On the way to [place] while driving, the patient noticed her legs were swollen and that the dorsum of her left foot was getting blue. She denied any pain in her legs. She called the home health agency in [place] and they told her to stop at the nearest hospital; this is how the patient ended up at our facility. She reports in addition to her leg swelling, she has been having worsening shortness of breath for 2 days. No fever or chills. She was having occasional cough. She was given medications for her heart while in [place] because her heart rate was in the 160s. The patient was admitted for acute- on-chronic respiratory failure and bilateral infiltrates. She was started on IV fluids, as well as IV antibiotics. The patient underwent a pulmonary arteriogram that did not show any pulmonary emboli. Venous extremity Dopplers that did not show acute deep or superficial DVTs. Echocardiogram showed an EF of 60% to 65% with no mass or thrombus seen. She underwent a pulmonary consult. They agreed with treating the patient with broad-spectrum antibiotics, bronchodilators as well as supplemental O2 and beta agonist inhalers. They suggest to avoid beta blockers given her severe COPD and pneumonia. Continue with her calcium channel blockers. The patient has clinically improved. Her shortness of breath has significantly improved. The patient is appropriate for discharge home today. She was kept here several days to make sure that she can make the trip up to [place]. VITAL SIGNS: On the day of her discharge, temperature 97.4 degrees, heart rate 85, respirations 20, blood pressure 164/62, O2 is 100%. DISCHARGE DIET: Regular. DISCHARGE MEDICATIONS: 1. Ventolin inhaler 6 puffs inhaled p.r.n. 2. Albuterol 0.63 mg inhaled t.i.d. 3. Brovana 15 mcg inhaled RT q.12 hours. 4. Budesonide 0.5 mg inhaled b.i.d. 5. Cardizem-LA 180 mg p.o. daily. 6. Mucinex 600 mg p.o. b.i.d. 7. Levaquin 500 mg p.o. daily. 8. Lorazepam 0.25 mg p.o. p.r.n. 9. Child vitamin chew 1 each p.o. daily. 10. Prednisone 10 mg p.o. daily. 11. Wagner oil 1000 mg 1 each p.o. b.i.d. 12. Spiriva 18 mcg inhaled daily. FOLLOWUP: The patient is being discharged home. She will need to follow up with her primary care physician in [place]. She has been advised that we stopped her verapamil as well as beta blockers and started on Cardizem-LA 180 mg daily. Patient can return to the ED for any worsening of symptoms. DISCHARGE TIME: Thirty minutes. Dictated by SULMA Bowie for Kraig La MD Addendum: I personally evaluated and examined the patient in conjunction to the [employer] and agreed with her plans and dispositions. She still had fine crackles in her lungs on my exam. [facility]
== END 2017-01-12 15:46 | disposition home or self-care (01) ==
LOC: ED 17:37 → 3S 22:49 → SUATTDRO 22:49 → 3N 01-08 16:58
PROVIDERS: ATTEND Internal Medicine